=== PATIENT | female | born 1990 | race American Indian/Alaskan Native ===

== ENCOUNTER 2016-09-08 13:42 | Emergency (ER) | payer SELFPAY ==
[2016-09-08 14:12] LABS: Basophils % (Auto) 0.7 % (0.0-1.8); Eosinophils % (Auto) 4.4 % (0.0-4.3); Hematocrit 35.1 % (30.3-42.9); Hemoglobin 11.3 gm/dl (10.1-14.3); Mean Corpuscular HGB Conc 32 % (30-34); Mean Corpuscular Volume 80 fl (79-97); Platelet Count 319 K/mm3 (140-440); Red Cell Distribution Width 15.7 % (13.2-15.2); White Blood Count 7.3 K/mm3 (4.5-11.0)
[2016-09-08] MEDS ORDERED: ZOFRAN IV ONE (14:16)
[2016-09-08] MEDS ORDERED: NACL 0.9% 1000 ML 1,000 ML IV ONE (14:16)
[2016-09-08 14:20] LABS: Mean Corpuscular Hemoglobin 26 pg (28-32)
--- NOTE | 2016-09-08 14:23 | Emergency Department Report ---
ED Syncope HPI - General Chief Complaint: Syncope Stated Complaint: SYNCOPE,EPISODE Time Seen by Provider: 09/08/16 14:08 Source: patient, EMS Exam Limitations: no limitations - History of Present Illness Initial Comments: patient stated that wake-up this morning really dizzy and lightheaded.slightly nauseated. no vomiting. Timing/Prior Episodes: no prior history, single episode today Precipitating Factors: Positive: lightheadedness, nausea Loss of Consciousness: brief (seconds) Current Symptoms: back to normal, dizziness - Related Data Allergies/Adverse Reactions: Allergies No Known Allergies Allergy (Unverified 09/08/16 13:50) Home Medications: Ambulatory Orders Ondansetron [Zofran Odt] 4 mg PO Q8HR #14 tab.rapdis 09/08/16 ED Review of Systems ROS: Stated complaint: SYNCOPE,EPISODE Other details as noted in HPI Comment: All other systems reviewed and negative Constitutional: weakness. denies: chills, diaphoresis, fever Respiratory: denies: cough, shortness of breath, wheezing Gastrointestinal: nausea, diarrhea. denies: abdominal pain Genitourinary: denies: urgency Neurological: denies: headache, numbness, paresthesias ED Past Medical Hx - Past Medical History Previous Medical History?: No - Surgical History Past Surgical History?: No - Social History Smoking Status: Current Some Day Smoker Substance Use Type: Alcohol - Medications Home Medications: Home Medications Medication Instructions Recorded Confirmed Last Taken Type Ondansetron [Zofran Odt] 4 mg PO Q8HR #14 tab.rapdis 09/08/16 Unknown Rx ED Physical Exam - General Limitations: No Limitations General appearance: alert, in no apparent distress - Head Head exam: Present: atraumatic, normal inspection - Eye Eye exam: Present: normal appearance - Neck Neck exam: Present: normal inspection. Absent: meningismus - Respiratory Respiratory exam: Present: normal lung sounds bilaterally - Cardiovascular Cardiovascular Exam: Present: regular rate - GI/Abdominal GI/Abdominal exam: Present: soft, normal bowel sounds. Absent: distended, tenderness, guarding, rebound, rigid - Neurological Exam Neurological exam: Present: alert, oriented X3, CN II-XII intact, normal gait. Absent: motor sensory deficit - Psychiatric Psychiatric exam: Present: normal affect ED Medical Decision Making - Lab Data Result diagrams: 09/08/16 13:53 09/08/16 13:53 - Medical Decision Making PATIENT STATED THAT SHE FEEL MUCH BETTER. SHE IS ASKING FOR SOMETHING TO EAT AND DRINK. Critical care attestation.: If time is entered above; I have spent that time in minutes in the direct care of this critically ill patient, excluding procedure time. ED Disposition Clinical Impression: Syncope Disposition: DC-01 TO HOME OR SELFCARE Is pt being admited?: No Condition: Stable Instructions: Syncope (ED) Prescriptions: Ondansetron [Zofran Odt] 4 mg PO Q8HR #14 tab.rapdis Referrals: PRIMARY CARE, [Primary Care Provider] - 3-5 Days
[2016-09-08 14:29] LABS: Anion Gap 18 mmol/L; BUN/Creatinine Ratio 13.75; Blood Urea Nitrogen 11 mg/dL (7-17); Calcium 8.6 mg/dL (8.4-10.2); Carbon Dioxide 25 mmol/L (22-30); Chloride 106.2 mmol/L (98-107); Glucose 87 mg/dL (65-100); Potassium 4.8 mmol/L (3.6-5.0); Sodium 144 mmol/L (137-145)
[2016-09-08] MEDS ORDERED: BENADRYL ONE (15:50)
== END 2016-09-08 15:55 | disposition home or self-care (01) ==
LOC: ED 13:42
DX: R55 Syncope and collapse (principal); Z72.0 Tobacco use
CPT/HCPCS: 36415; 80048; 85025; 93005; 93010; 96361; 96374; 99284; J2405; J7030; J1200

== ENCOUNTER 2017-06-24 11:49 | Emergency (ER) | payer SELFPAY ==
[2017-06-24 12:29] VITALS: BP 100/61
[2017-06-24 13:40] LABS: Bilirubin,Urine NEG (Negative); Blood,Urine NEG (Negative); Color,Urine Yellow (Yellow); Mucus,Urine FEW /HPF; Protein,Urine <15 mg/dL mg/dL (Negative); RBC,Urine < 1.0 /HPF (0.0-6.0)
[2017-06-24 13:57] LABS: HCG Qualitative,Urine Positive (Negative)
== END 2017-06-24 14:15 | disposition left against medical advice (07) ==
LOC: ED 11:49
DX: R11.2 Nausea with vomiting, unspecified (principal); Z53.21 Procedure and treatment not carried out due to patient leaving prior to being seen by health care provider
CPT/HCPCS: 81001; 81025